=== PATIENT | male | born 1960 | race Caucasian/White ===

== ENCOUNTER 2019-01-08 09:55 | Outpatient (REF) | payer BC, SELFPAY ==
--- NOTE | 2019-01-08 08:45 | SKI_PTH ---
PATIENT: CURLY REAGAN V LOC: [facility] U#:[id number] AGE/SX: 58/M ROOM: RE01/08/[address]: Isaac Elmore DO : 1960 BED: DIS: 01/08/2019 SPEC #: [id number] RECD: 01/08/19 18:17 STATUS: CAILIN REQ #: [id number] NASREEN: 01/08/19 08:[address]: Isaac Elmore DEPT: Surgical Specimen RECD BY: Roseann Schulz ENTERED: 01/08/19 18:18 SP TYPE: SKI OTHR DR: Celeste Taylor Unknown,Unknown Tissues: 1 - SKIN BIOPSY(SHAVE/PUNCH) Procedures: SKIN LEVEL 4 Comments: [id number]
== END 2019-01-08 10:15 ==
LOC: LBN 09:55
PROVIDERS: Visit Provider Otolaryngology Otolaryngology/Facial Plastic Surgery
DX: L73.8 Other specified follicular disorders (principal); L85.8 Other specified epidermal thickening
CPT/HCPCS: 88305